=== PATIENT | female | born 1950 | race Caucasian/White ===

== ENCOUNTER 2019-04-14 14:40 | Emergency (ER) | payer MEDICARE, OTHER ==
[2019-04-14] MEDS ORDERED: Ondansetron 4 MG/2 ML SDV IVPUSH ONE (14:56)
[2019-04-14] MEDS ORDERED: Sodium Chloride 0.9% 10 ML Syringe FLUSH PRN (14:56)
[2019-04-14] MEDS ORDERED: Sodium Chloride 0.9% 1,000 ML IV ONE (14:56)
--- NOTE | 2019-04-14 14:56 | EDM.PDOC ---
ED HPI GENERAL MEDICAL PROBLEM - General Chief Complaint: General Stated Complaint: DIZZINESS Time Seen by Provider: 04/14/19 14:45 Source of Information: Reports: Patient History Limitations: Reports: No Limitations - History of Present Illness INITIAL COMMENTS - FREE TEXT/NARRATIVE: History of present illness: []Patient complains of spinning dizziness that is worse when she wakes up in the morning gets out of bed and starts moving. Patient denies any headache, change in vision, chest pain, fevers, chills. Patient has nausea and vomiting. Patient states she is a diabetic and doesn't check her sugars and she has missed 2 doses of her metformin. Review of systems: As per history of present illness and below otherwise all systems reviewed and negative. Past medical history: As per history of present illness and as reviewed below otherwise noncontributory. Surgical history: As per history of present illness and as reviewed below otherwise noncontributory. Social history: No reported history of drug or alcohol abuse. Family history: As per history of present illness and as reviewed below otherwise noncontributory. Physical exam: General: Well developed, well nourished in NAD HEENT: Atraumatic, normocephalic, pupils reactive, negative for conjunctival pallor or scleral icterus, mucous membranes moist, throat clear, neck supple, nontender, trachea midline. Lungs: Clear to auscultation, breath sounds equal bilaterally, chest nontender. Heart: S1S2, regular, negative for clicks, rubs, or JVD. Abdomen: NABS, Soft, nondistended, nontender. Negative for masses or hepatosplenomegaly. Negative for costovertebral tenderness. Pelvis: Stable nontender. Genitourinary: Deferred. Rectal: Deferred. Extremities: Atraumatic, negative for cords or calf pain. Neurovascular unremarkable. Neuro: Awake, alert, oriented. Cranial nerves II through XII unremarkable. Cerebellum unremarkable. Motor and sensory unremarkable throughout. Exam nonfocal. Skin:warm and dry Diagnostics: EKG, CbC, chemistry, bedside glucose after hydration is 266 Therapeutics: IV hydration, meclizine, Zofran ED Course: Improved Impression: Benign positional vertigo, uncontrolled diabetes-noncompliance Prescriptions: Zofran, meclizine Plan: Take meds as directed, follow up with your primary care physician, return to ER if symptoms worsen or change. Definitive disposition and diagnosis as appropriate pending reevaluation and review of above. - Related Data Allergies Allergy/AdvReac Type Severity Reaction Status Date / Time Sulfa (Sulfonamide Allergy Rash Verified 04/14/19 14:44 Antibiotics) Home Meds: Home Meds ALPRAZolam [Alprazolam Odt] 0.25 mg PO ASDIRECTED 04/14/19 [History] Aspirin 81 mg PO DAILY 04/14/19 [History] Levothyroxine 112 mcg PO ACBREAKFAST 04/14/19 [History] Losartan [Cozaar] 100 mg PO DAILY 04/14/19 [History] Lovastatin 10 mg PO DAILY 04/14/19 [History] Meclizine [Antivert] 25 mg PO TID PRN #30 tab.chew 04/14/19 [Rx] Ondansetron HCl [Zofran] 4 mg PO Q4HR #12 tablet 04/14/19 [Rx] Pantoprazole [ProTONIX] 40 mg PO DAILY 04/14/19 [History] Turmeric 1 gm MC ASDIRECTED 04/14/19 [History] hydroCHLOROthiazide [Hydrochlorothiazide] 25 mg PO DAILY 04/14/19 [History] metFORMIN [Glucophage] 500 mg PO BIDMEALS 04/14/19 [History] ED ROS GENERAL - Review of Systems Review Of Systems: See Below ED EXAM, GENERAL - Physical Exam Exam: See Below Course - Vital Signs Last Recorded V/S: Last Vital Signs Temp 96.2 F 04/14/19 14:51 Pulse 74 04/14/19 15:58 Resp 20 04/14/19 15:58 BP 110/55 L 04/14/19 15:58 Pulse Ox 98 04/14/19 15:58 - Orders/Labs/Meds Orders: Active Orders 24 hr Category Date Time Status Blood Glucose Check, Bedside [RC] ONETIME Care 04/14/19 16:24 Active Sodium Chloride 0.9% [Saline Flush] Med 04/14/19 14:56 Active 10 ml FLUSH ASDIRECTED PRN Sodium Chloride 0.9% [Saline Flush] Med 04/14/19 14:56 Active 2.5 ml FLUSH ASDIRECTED PRN Saline Lock Insert [OM.PC] Stat Oth 04/14/19 14:55 Ordered Medication Orders Sodium Chloride (Saline Flush) 10 ml FLUSH ASDIRECTED PRN PRN Reason: Keep Vein Open Last Admin: 04/14/19 15:23 Dose: 10 ml Sodium Chloride (Saline Flush) 2.5 ml FLUSH ASDIRECTED PRN PRN Reason: Keep Vein Open Last Admin: 04/14/19 15:24 Dose: 2.5 ml Admin: 04/14/19 15:23 Dose: 2.5 ml Labs: Laboratory Tests 04/14/19 04/14/19 Range/Units 15:20 15:20 WBC 8.91 (4.0-11.0) K/uL RBC 3.89 L (4.30-5.90) M/uL Hgb 11.4 L (12.0-16.0) g/dL Hct 33.4 L (36.0-46.0) % MCV 85.9 (80.0-98.0) fL MCH 29.3 (27.0-32.0) pg MCHC 34.1 (31.0-37.0) g/dL RDW Std Deviation 44.1 (28.0-62.0) fl RDW Coeff of Elizabeth 14 (11.0-15.0) % Plt Count 281 (150-400) K/uL MPV 8.80 (7.40-12.00) fL Neut % (Auto) 86.3 H (48.0-80.0) % Lymph % (Auto) 9.7 L (16.0-40.0) % Borden % (Auto) 3.3 (0.0-15.0) % Eos % (Auto) 0.4 (0.0-7.0) % Baso % (Auto) 0.3 (0.0-1.5) % Neut # (Auto) 7.7 H (1.4-5.7) K/uL Lymph # (Auto) 0.9 (0.6-2.4) K/uL Borden # (Auto) 0.3 (0.0-0.8) K/uL Eos # (Auto) 0.0 (0.0-0.7) K/uL Baso # (Auto) 0.0 (0.0-0.1) K/uL Nucleated RBC % 0.0 /100WBC Nucleated RBCs # 0 K/uL Sodium 136 (136-145) mmol/L Potassium 4.2 (3.5-5.1) mmol/L Chloride 99 (98-107) mmol/L Carbon Dioxide 24.3 (21.0-32.0) mmol/L BUN 22 H (7.0-18.0) mg/dL Creatinine 1.2 H (0.6-1.0) mg/dL Est Cr Clr Drug Dosing 44.24 mL/min Estimated GFR (MDRD) 44.8 ml/min Glucose 324 H (74-106) mg/dL Calcium 9.7 (8.5-10.1) mg/dL Total Bilirubin 0.9 (0.2-1.0) mg/dL AST 10 L (15-37) IU/L ALT 17 (14-63) IU/L Alkaline Phosphatase 82 (46-116) U/L Total Protein 6.8 (6.4-8.2) g/dL Albumin 3.3 L (3.4-5.0) g/dL Globulin 3.5 (2.6-4.0) g/dL Albumin/Globulin Ratio 0.9 (0.9-1.6) Meds: Medications Generic Name Dose Route Start Last Admin Trade Name Freq PRN Reason Stop Dose Admin Sodium Chloride 10 ml 04/14/19 14:56 04/14/19 15:23 Saline Flush FLUSH 10 ml ASDIRECTED PRN Administration Keep Vein Open Sodium Chloride 2.5 ml 04/14/19 14:56 04/14/19 15:24 Saline Flush FLUSH 2.5 ml ASDIRECTED PRN Administration Keep Vein Open Discontinued Medications Generic Name Dose Route Start Last Admin Trade Name Freq PRN Reason Stop Dose Admin Diazepam 2.5 mg 04/14/19 14:56 04/14/19 15:25 Valium IVPUSH 04/14/19 14:57 2.5 mg ONETIME ONE Administration Diazepam Confirm 04/14/19 15:11 04/14/19 15:25 Valium Administered 04/14/19 15:12 Not Given Dose 5 mg .ROUTE .STK-MED ONE Sodium Chloride 1,000 mls @ 999 mls/hr 04/14/19 14:56 04/14/19 15:23 Normal Saline IV 04/14/19 15:56 999 mls/hr .Bolus ONE Administration Ondansetron HCl 4 mg 04/14/19 14:56 04/14/19 15:24 Zofran IVPUSH 04/14/19 14:57 4 mg ONETIME ONE Administration Departure - Departure Time of Disposition: 16:30 Disposition: Home, Self-Care 01 Condition: Good Clinical Impression: Noncompliance with diabetes treatment Benign positional vertigo Qualifiers: Laterality: unspecified laterality Qualified Code(s): H81.10 - Benign paroxysmal vertigo, unspecified ear - Discharge Information *PRESCRIPTION DRUG MONITORING PROGRAM REVIEWED*: No *COPY OF PRESCRIPTION DRUG MONITORING REPORT IN PATIENT JENNIFER: No Prescriptions: Ondansetron HCl [Zofran] 4 mg PO Q4HR #12 tablet Meclizine [Antivert] 25 mg PO TID PRN #30 tab.chew PRN Reason: Dizziness Referrals: PCP,Not In Area [Primary Care Provider] - Forms: ED Department Discharge Additional Instructions: The following information is given to patients seen in the emergency department who are being discharged to home. This information is to outline your options for follow-up care. We provide all patients seen in our emergency department with a follow-up referral. The need for follow-up, as well as the timing and circumstances, are variable depending upon the specifics of your emergency department visit. If you don't have a primary care physician on staff, we will provide you with a referral. We always advise you to contact your personal physician following an emergency department visit to inform them of the circumstance of the visit and for follow-up with them and/or the need for any referrals to a consulting specialist. The emergency department will also refer you to a specialist when appropriate. This referral assures that you have the opportunity for follow-up care with a specialist. All of these measure are taken in an effort to provide you with optimal care, which includes your follow-up. Under all circumstances we always encourage you to contact your private physician who remains a resource for coordinating your care. When calling for follow-up care, please make the office aware that this follow-up is from your recent emergency room visit. If for any reason you are refused follow-up, please contact the [facility] Emergency Department at and asked to speak to the emergency department charge nurse. Take meds as directed, follow up with your primary care physician, return to ER if symptoms worsen or change. [facility] [address] [place] [id number] - My Orders Last 24 Hours: My Active Orders 04/14/19 14:55 Saline Lock Insert [OM.PC] Stat 04/14/19 14:56 Sodium Chloride 0.9% [Saline Flush] 10 ml FLUSH ASDIRECTED PRN Sodium Chloride 0.9% [Saline Flush] 2.5 ml FLUSH ASDIRECTED PRN 04/14/19 16:24 Blood Glucose Check, Bedside [RC] ONETIME - Assessment/Plan Last 24 Hours: My Active Orders 04/14/19 14:55 Saline Lock Insert [OM.PC] Stat 04/14/19 14:56 Sodium Chloride 0.9% [Saline Flush] 10 ml FLUSH ASDIRECTED PRN Sodium Chloride 0.9% [Saline Flush] 2.5 ml FLUSH ASDIRECTED PRN 04/14/19 16:24 Blood Glucose Check, Bedside [RC] ONETIME
[2019-04-14] MEDS ORDERED: diazePAM 5 MG/ML MDV ONE (15:11)
[2019-04-14] MEDS: Sodium Chloride 0.9% 2.5 ML Syringe FLUSH PRN ×2 (15:23→15:24)
[2019-04-14 15:56] LABS: CARBON DIOXIDE,CO2 24.3 mmol/L (21.0-32.0); POTASSIUM,K 4.2 mmol/L (3.5-5.1)
== END 2019-04-14 16:57 | disposition home or self-care (01) ==
LOC: MW.ED 14:40
DX: H81.10 Benign paroxysmal vertigo, unspecified ear (principal); E11.65 Type 2 diabetes mellitus with hyperglycemia; Z91.14 Patient's other noncompliance with medication regimen; Z79.82 Long term (current) use of aspirin; Z79.899 Other long term (current) drug therapy; Z79.84 Long term (current) use of oral hypoglycemic drugs
CPT/HCPCS: 36415; 80053; 82962; 85025; 93005; 96361; 96374; 96375; 99284; J2405; J3360; J7040; 99282